=== PATIENT | male | born 2005 | race Caucasian/White ===

== ENCOUNTER 2025-06-18 11:00 | Emergency (ER) | payer SELFPAY ==
[2025-06-18 11:08] VITALS: BP 155/82; PULSE 102; RESP 18; TEMP 36.8; O2SAT 100; BMI 32.6
--- NOTE | 2025-06-18 11:10 | XR_ITS ---
PROCEDURE INFORMATION: Exam: XR Left Ankle Exam date and time: 06/18/2025 11:13 AM Age: 20 years old Clinical indication: Pain; Ankle; Left; Additional info: Inversion injury TECHNIQUE: Imaging protocol: Radiologic exam of the left ankle. Views: 3 or more views. COMPARISON: Plain film radiographs of the left foot performed June 18, 2025. FINDINGS: Bones/joints: Osseous mineralization is within normal limits. Subtle faint calcific density projects along the distal tip of the fibula compatible with probable tiny avulsion fracture fragment measuring 2 mm. Distal aspect of the tibia and fibula are otherwise intact. Mortise is normally aligned. No large joint effusion of the tibiotalar joint. Joint space narrowing and mild degenerative changes present at the talonavicular joint. Soft tissues: Moderate soft tissue swelling is present along the lateral aspect of the ankle. IMPRESSION: 1. Subtle faint calcific density projects along the distal tip of the fibula compatible with probable tiny avulsion fracture fragment measuring 2 mm. No other evidence of an acute fracture involving the distal aspect of the tibia or fibula. The mortise is normally aligned. 2. Moderate soft tissue swelling along the lateral aspect of the ankle.
--- NOTE | 2025-06-18 11:10 | XR_ITS ---
PROCEDURE INFORMATION: Exam: XR Left Foot Exam date and time: 06/18/2025 11:13 AM Age: 20 years old Clinical indication: Pain; Foot; Left; Additional info: Inversion injury TECHNIQUE: Imaging protocol: Radiologic exam of the left foot. Views: 3 or more views. COMPARISON: Plain film radiographs of the left ankle performed June 18, 2025. FINDINGS: Bones/joints: Osseous mineralization is within normal limits. Distal aspect of the tibia and fibula appear intact. Potential small avulsion fracture fragment along the distal tip of the fibula, seen on recent ankle series performed June 18, 2025, is not seen on these plain film radiographs of the left foot. Tarsal bones are intact and normally aligned. Rpyi-gu-[id number] joint space narrowing, sclerosis and bony spurring is present at the talonavicular joint. Alignment of the tarsometatarsal junction is normal. Metatarsals are intact. The toes are intact. Soft tissues: Moderate soft tissue swelling along the lateral aspect of the ankle. IMPRESSION: 1. No acute fracture of the left foot. 2. Moderate soft tissue swelling along the lateral aspect of the ankle. 3. Please see report from plain film radiographs of the left ankle performed June 18, 2025 for additional information.
--- NOTE | 2025-06-18 11:18 | ED_ITS ---
Discharge Plan Disposition Patient Disposition: Home, Self-Care Referrals Follow up/Referrals: Efe Marks DO [Staff Physician, Orthopedics] - See instructions Provider,Ralhp, [Primary Care Provider, Medical] - See instructions Activity Restrictions/Add. Instructions Additional Instructions/Restrictions: No evidence of any fracture or dislocation on your x-rays today your symptoms are consistent with an ankle sprain. You may bear weight as tolerated expect s everal weeks before this is back to normal you may follow-up with your primary care doctor or our orthopedic surgeon whom I have given you a referral to if you are not improving in 1 to 2 weeks or to manage her downstream symptoms which may include the need for physical therapy etc. Clinical Impressions Clinical Impression: Left ankle sprain Discharge ED Provider: Johnnie Mar General Adult HPI General Chief complaint: Extremity Injury, Lower Stated complaint: [id number] and [id number] L ankle Time Seen by Provider: 06/18/25 11:05 Mode of Arrival: Ambulatory Source of Information: Patient Description of Symptoms (Recalled from ER Triage Doc. by RN): PATIENT PRESENTS TO ED FOR LEFT ANKLE INJURY WHILE RUNNING. PT REPORTS THE ANKLE TURNED OUTWARD AND HIS WHOLE BODY WEIGHT WENT DOWN ON IT. STATES IT IS DIFFICULT TO BEAR WEIGHT. History of Present Illness HPI narrative: Patient is a 20-year-old presents today with an inversion left ankle injury while running on a track just prior to arrival no injuries elsewhere. No other past medical history. Related Data Allergies Allergy/AdvReac Type Severity Reaction Status Date / Time No Known Allergies Allergy Verified 06/18/25 11:19 [facility] Disclaimer: The information contained in this section may have been updated after the patient was seen, as this information can be updated by other users. Social History Smoking Status: Never smoker alcohol intake: never current occupational status: other Travel in the last 8 weeks?: None ROS Obtained: Yes All systems reviewed & no additional complaints except as documented Physical Exam General General appearance: alert and in no apparent distress Respiratory Respiratory exam: Present normal lung sounds bilaterally Cardiovascular Cardiovascular exam: Present regular rate Extremities Exam Extremities exam: Present other (Left ankle is swollen over the left lateral malleolus there is tenderness to compression of the distal tib-fib location as well as the mid and lateral foot) Neurological Exam Neurological exam: Present alert and oriented X3 Medical Decision Making Medical Records Screening: Per USPSTF and CDC recommendations, given the prevalence of disease in our region, it is our hospital?s policy to screen for HIV and viral Hepatitis for all patients aged 18 and over and those with ongoing risk factors. Sammy Inquiry Pt receiving controlled substance: No Vital Signs: 06/18/25 11:08 06/18/25 11:08 Temperature 98.3 F 98.3 F Temperature Source Oral Pulse Rate 102 H Pulse Rate [Right] 102 H Respiratory Rate 18 18 Blood Pressure 155/82 H Blood Pressure [Right Arm] 155/82 H Blood Pressure Mean [Right Arm] 106 02 Sat by Pulse Oximetry 100 100 Orders (Tests/Meds): ED MEDICATIONS Discontinued Medications Generic Name Dose Route Start Last Admin Trade Name Freq PRN Reason Stop Dose Admin Ibuprofen 800 mg 06/18/25 11:10 06/18/25 11:21 Ibuprofen 400 Mg Tablet PO 06/18/25 11:11 800 mg ONCE ONE Administration ORDERS Category Date Time Status Ankle XR - Left minimum 3 Views [XR ankle LT min 3V] Exams 06/18/25 11:10 Taken Stat Foot XR left minimum 3 views [XR foot LT min 3V] Stat Exams 06/18/25 11:10 Taken Medical Decision Narrative: 20-year-old with above history and physical consistent with fracture versus dislocation versus sprain. Favor sprain but will get plain films to rule out fracture or dislocation. Ibuprofen has been administered will reassess. Reassessment 1130 x-rays were performed which I personally interpreted which shows no evidence of any fracture or dislocation. Patient given an Aircast and allowed to bear weight as tolerated will follow-up with orthopedic surgery or primary care doctor for physical therapy and/or downstream management. Supportive care including ibuprofen and ice rest have been discussed patient discharged in stable condition. Critical Care Critical Care Time Critical Care Time: No
[2025-06-18] MEDS: IBUPROFEN 400 MG TABLET 800 MG PO (11:21)
[2025-06-18 11:39] VITALS: BP 155/82; PULSE 102; RESP 18; TEMP 36.8; O2SAT 100
--- OUTSIDE RECORDS SUMMARY | 2025-06-18 11:41 | XMS_ITS | Clinical Summary ---
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
== END 2025-06-18 11:40 | disposition home or self-care (01) ==
LOC: ER 11:40
PROVIDERS: Emergency Provider Student in an Organized Health Care Education/Training Program
DX: S93.402A Sprain of unspecified ligament of left ankle, initial encounter (principal); X50.1XXA Overexertion from prolonged static or awkward postures, initial encounter
CPT/HCPCS: 73610; 73630; 99283; 99284